=== PATIENT | female | born 1995 | race Hispanic/Latino ===

== ENCOUNTER 2017-05-23 21:18 | Inpatient (IN) | payer MEDICAID ==
[2017-05-23 21:32] VITALS: BMI 20.3
--- NOTE | 2017-05-23 21:37 | ED PDOC ---
Arrival/HPI - General Time Seen by Provider: 05/23/17 21:33 Historian: Patient - History of Present Illness Narrative History of Present Illness (Text): 05/23/17 21:34 A 21 year old female, whose past medical history includes endometriosis, presents to the emergency department complaining of intermittent rectal bleeding for 1 year. Patient reports today she noted blood mixed with discharge , which she describes as foul smelling pus. Patient notes upper abdominal pain and constipation. She states her last bowel movement was at least 24 hours ago. Patient denies any fever, chills, nausea, vomiting, chest pain, shortness of breath or any other complaints. Time/Duration: Other (1 year) Context: Home Past Medical History - Provider Review Nursing Documentation Reviewed: Yes Family/Social History - Physician Review Nursing Documentation Reviewed: Yes Family/Social History: No Known Family HX Allergies/Home Meds Allergies/Adverse Reactions: Allergies No Known Allergies Allergy (Verified 05/23/17 21:32) Home Medications: Home Meds Medication Instructions Recorded Confirmed No Known Home Med 05/23/17 05/23/17 Review of Systems - Physician Review All systems were reviewed & negative as marked: Yes - Review of Systems Constitutional: absent: Fevers, Night Sweats Respiratory: absent: SOB Cardiovascular: absent: Chest Pain Gastrointestinal: Abdominal Pain (upper abdomen), Constipation, Other (rectal bleeding with pus noted). absent: Nausea, Vomiting Physical Exam Vital Signs Temp Pulse Resp BP Pulse Ox 05/24/17 02:00 90 18 118/72 100 05/23/17 22:00 98.7 F 91 H 18 116/67 100 Appearance: Positive for: Well-Appearing, Non-Toxic, Comfortable Pain Distress: None Mental Status: Positive for: Alert and Oriented X 3 - Systems Exam Head: Present: Atraumatic, Normocephalic Pupils: Present: PERRL Extroacular Muscles: Present: EOMI Conjunctiva: Present: Normal Mouth: Present: Moist Mucous Membranes Respiratory/Chest: Present: Clear to Auscultation, Good Air Exchange. No: Respiratory Distress, Accessory Muscle Use Cardiovascular: Present: Regular Rate and Rhythm, Normal S1, S2. No: Murmurs Abdomen: No: Tenderness, Distention, Peritoneal Signs Rectal: Present: Normal Rectal Tone. No: Occult Blood, Rectal Tenderness, Gross Blood, Melena, Hemorrhoids, Fissures, Nodule/Mass/Lesions Upper Extremity: Present: Normal Inspection. No: Cyanosis, Edema Lower Extremity: Present: Normal Inspection. No: Edema Neurological: Present: GCS=15, CN II-XII Intact, Speech Normal Skin: Present: Warm, Dry, Normal Color. No: Rashes Psychiatric: Present: Alert, Oriented x 3, Normal Insight, Normal Concentration Medical Decision Making ED Course and Treatment: 05/23/17 21:33 Impression: A 21 year old female with rectal bloody discharge. Patient notes upper abdominal pain and constipation Plan: -- Abdomen and pelvis CT -- Labs -- Stool and Urine culture -- Urinalysis -- Reassess and disposition Progress Notes: - Lab Interpretations Lab Results: 05/23/17 21:55 05/23/17 21:55 Lab Results 05/23/17 21:55: Stool Leukocytes, Qual Positive H 05/23/17 21:55: Sodium 143, Potassium 3.6, Chloride 107, Carbon Dioxide 24, Anion Gap 16, BUN 13, Creatinine 0.7, Est GFR ( Amer) > 60, Est GFR (Non- Af Amer) > 60, Random Glucose 89, Calcium 10.1, Total Bilirubin 0.2, AST 25, ALT 28, Alkaline Phosphatase 66, Total Protein 8.4 H, Albumin 4.7, Globulin 3.7 , Albumin/Globulin Ratio 1.3 05/23/17 21:55: Urine Color Yellow, Urine Appearance Sl cloudy, Urine pH 6.0, Ur Specific [place] >= 1.030, Urine Protein Negative, Urine Glucose (UA) Negative, Urine Ketones Negative, Urine Blood Small H, Urine Nitrate Negative, Urine Bilirubin Negative, Urine Urobilinogen 0.2, Ur Leukocyte Esterase Small H , Urine RBC 1 - 3, Urine WBC 15 - 20, Ur Epithelial Cells 6 - 8, Urine Bacteria Mod 05/23/17 21:55: PT 11.3, INR 0.99 05/23/17 21:55: WBC 12.3 H, RBC 4.80, Hgb 12.9, Hct 39.4, MCV 82.1, MCH 26.9, MCHC 32.7, RDW 13.2, Plt Count 259, MPV 10.8, Gran % 64.0, Lymph % (Auto) 16.7 L , [place] % (Auto) 9.5 H, Eos % (Auto) 9.3 H, Baso % (Auto) 0.5, Gran # 7.90 H, Lymph # (Auto) 2.1, [place] # (Auto) 1.2 H, Eos # (Auto) 1.2 H, Baso # (Auto) 0.06 - RAD Interpretation Radiology Orders: 05/23/17 21:35 ABD PELVIS PO & IV CONTRAST [CT] Stat - Medication Orders Current Medication Orders: Acetaminophen (Tylenol 325mg Tab) 650 mg PO Q6H PRN PRN Reason: Fever >100.4 F Metronidazole (Flagyl) 500 mg in 100 mls @ 100 mls/hr IVPB Q8 KADI PRN Reason: Protocol Last Admin: 05/24/17 14:40 Dose: 100 mls/hr eMAR Start Stop Document 05/24/17 14:40 SOUSV (Rec: 05/24/17 14:40 S[facility]) Intravenous Solution Start Date 05/24/17 Start Time 14:40 End Date 05/24/17 End time 15:40 Total Infusion Time 60 Ceftriaxone Sodium (Rocephin 1 Gram Ivpb) 1 gm in 100 mls @ 100 mls/hr IVPB DAILY [facility] PRN Reason: Protocol Last Admin: 05/24/17 09:23 Dose: 100 mls/hr eMAR Start Stop Document 05/24/17 09:23 SOUSV (Rec: 05/24/17 09:23 [facility]SV [facility]) Intravenous Solution Start Date 05/24/17 Start Time 09:23 End Date 05/24/17 End time 10:23 Total Infusion Time 60 Sodium Chloride (Sodium Chloride 0.9%) 1,000 mls @ 150 mls/hr IV .[id number] [facility] Last Admin: 05/24/17 19:35 Dose: 150 mls/hr eMAR Start Stop Document 05/24/17 19:35 MAURO (Rec: 05/24/17 19:35 MAURO [facility]) Intravenous Solution Start Date 05/24/17 Start Time 19:35 Ketorolac Tromethamine (Toradol) 15 mg IVP Q6H PRN PRN Reason: Pain, moderate (4-7) Stop: 05/29/17 13:55 Ondansetron HCl (Zofran Inj) 4 mg IVP Q6H PRN PRN Reason: Nausea/Vomiting Pantoprazole Sodium (Protonix Inj) 40 mg IVP DAILY [facility] Last Admin: 05/24/17 09:21 Dose: 40 mg IVP Administration Document 05/24/17 09:21 SOU (Rec: 05/24/17 09:21 [facility] Charges for Administration # of IVP Administrations 1 Discontinued Medications Bisacodyl (Dulcolax) 10 mg PO ONCE ONE Stop: 05/24/17 20:01 Last Admin: 05/24/17 19:37 Dose: 10 mg Ceftriaxone Sodium (Rocephin 1 Gram Ivpb) 1 gm in 100 mls @ 100 mls/hr IVPB STAT STA PRN Reason: Protocol Stop: 05/23/17 23:31 Last Admin: 05/23/17 22:48 Dose: 100 mls/hr eMAR Start Stop Document 05/23/17 22:48 AD (Rec: 05/23/17 22:49 AD [id number]) Intravenous Solution Start Date 05/23/17 Start Time 22:49 Metronidazole (Flagyl) 500 mg in 100 mls @ 100 mls/hr IVPB STAT STA PRN Reason: Protocol Stop: 05/24/17 03:07 Last Admin: 05/24/17 02:36 Dose: 100 mls/hr eMAR Start Stop Document 05/24/17 02:36 AD (Rec: 05/24/17 02:37 AD [id number]) Intravenous Solution Start Date 05/24/17 Start Time 02:37 Sodium Chloride (Sodium Chloride 0.9%) 1,000 mls @ 92 mls/hr IV .[id number] [facility] Last Admin: 05/24/17 03:52 Dose: 92 mls/hr eMAR Start Stop Document 05/24/17 03:52 MAURO (Rec: 05/24/17 03:52 [facility] Intravenous Solution Start Date 05/24/17 Start Time 03:52 Magnesium Citrate (Citrate Of Mag) 300 ml PO ONCE ONE Stop: 05/24/17 16:01 Last Admin: 05/24/17 15:57 Dose: 300 ml Pneumococcal Polyvalent Vaccine (Pneumovax 23 Vaccine) 0.5 ml IM .ONCE ONE Stop: 05/24/17 04:32 - Scribe Statement The provider has reviewed the documentation as recorded by the Kelleyibmavis Travis Provider Scribe Attestation: All medical record entries made by the Kelleyibmavis were at my direction and personally dictated by me. I have reviewed the chart and agree that the record accurately reflects my personal performance of the history, physical exam, medical decision making, and the department course for this patient. I have also personally directed, reviewed, and agree with the discharge instructions and disposition. Disposition/Present on Arrival - Present on Arrival Any Indicators Present on Arrival: No History of DVT/PE: No History of Uncontrolled Diabetes: No Urinary Catheter: No History of Decub. Ulcer: No History Surgical Site Infection Following: None - Disposition Have Diagnosis and Disposition been Completed?: Yes Diagnosis: Colitis Disposition: HOSPITALIZED Disposition Time: 22:00 Patient Plan: Admission Patient Problems: Current Active Problems Problem Status Onset Colitis Acute Condition: STABLE
[2017-05-23 22:12] LABS: ALB/GLOB RATIO 1.3 (1.1-1.8); ALBUMIN 4.7 g/dL (3.0-4.8); ALT/SGPT 28 U/L (7-56); AST/SGOT 25 U/L (14-36); BLOOD UREA NITROGEN 13 mg/dL (7-21); CALCIUM 10.1 mg/dL (8.4-10.5); GFR AFRICAN-AMERICAN > 60; GFR NON-AFRICAN AMERICAN > 60
[2017-05-23 22:16] LABS: BASO # 0.06 K/mm3 (0.0-2.0); BASO % 0.5 % (0.0-3.0); EOS # 1.2 (0.0-0.7); EOS % 9.3 % (1.5-5.0); GRAN # 7.9 (1.4-6.5); HEMOGLOBIN 12.9 g/dL (12.0-16.0); LYMPH # 2.1 (1.2-3.4); LYMPH % 16.7 % (22.0-35.0); MEAN CELL VOLUME 82.1 fl (80.0-105.0); MEAN CORPUSCULAR HEMOGLOBIN 26.9 pg (25.0-35.0); MEAN CORPUSCULAR HGB CONC 32.7 g/dl (31.0-37.0); MEAN PLATELET VOLUME 10.8 fl (7.0-11.0); MONO # 1.2 (0.1-0.6); MONO % 9.5 % (1.0-6.0); RBC 4.8 10^6/uL (3.5-6.1); RED CELL DISTRIBUTION WIDTH 13.2 % (11.5-14.5); URINE BILIRUBIN NEGATIVE (NEGATIVE); URINE BLOOD SMALL (NEGATIVE); URINE GLUCOSE (UA) NEGATIVE (NEGATIVE); URINE LEUKOCYTE ESTERASE SMALL Leu/uL (NEGATIVE); URINE PROTEIN NEGATIVE mg/dL (<30 mg/dL); URINE UROBILINOGEN 0.2 E.U./dL (<1 E.U./dL); WHITE BLOOD COUNT 12.3 10^3/ul (4.5-11.0)
[2017-05-23] MEDS ORDERED: Iohexol 350 MG/100 ML VIAL ONE (22:16)
[2017-05-23] MEDS ORDERED: Iohexol 240 (50 ml) ONE (22:16)
[2017-05-23 22:18] LABS: URINE APPEARANCE SL CLOUDY (CLEAR); URINE COLOR YELLOW (YELLOW)
[2017-05-23 22:31] LABS: URINE BACTERIA MOD (NEG); URINE WBC 15 - 20 /hpf (0-6)
[2017-05-23 22:32] LABS: INR 0.99 (0.93-1.08); PROTHROMBIN TIME 11.3 SECONDS (9.4-12.5)
[2017-05-23] MEDS ORDERED: cefTRIAXone 1 gm 1 GM/100 ML BAG IVPB STA (22:32)
[2017-05-24] MEDS ORDERED: metroNIDAZOLE IV 500 mg/100 ml 500 MG/100 ML BAG IVPB STA (02:08)
--- NOTE | 2017-05-24 02:09 | ED PDOC ---
Physical Exam Vital Signs Temp Pulse Resp BP Pulse Ox 05/24/17 02:00 90 18 118/72 100 05/23/17 22:00 98.7 F 91 H 18 116/67 100 Medical Decision Making ED Course and Treatment: 05/23/17 23:00 Case endorsed to me by Dr. Acevedo, pending labs, CT, re-assessment, and disposition. 05/24/17 02:09 CT Abdomen and Pelvis shows: Lung bases: Unremarkable. No mass. No consolidation. ABDOMEN: Liver: The liver is unremarkable. Gallbladder and bile ducts: The gallbladder is unremarkable. No biliary ductal dilatation. Pancreas: The pancreas is unremarkable. Spleen: The spleen is unremarkable. Adrenals: The adrenal glands are unremarkable. Kidneys and ureters: Symmetric renal enhancement without hydronephrosis. Stomach and bowel: The colon is moderately distended with stool. Circumferential wall thickening the sigmoid colon and rectum with mild mucosal enhancement, compatible with a distal infectious or inflammatory colitis. No significant small bowel dilatation. Appendix: No findings to suggest acute appendicitis. PELVIS: Bladder: No focal wall thickening of the urinary bladder. Reproductive: 2.4 cm left corpus luteum cyst. ABDOMEN and PELVIS: Intraperitoneal space: No significant peritoneal free fluid. No free peritoneal air. Bones/joints: No acute osseous abnormality. Soft tissues: No soft tissue swelling. Vasculature: Unremarkable. No abdominal aortic aneurysm. Lymph nodes: No adenopathy. IMPRESSION: The colon is moderately distended with stool. Circumferential wall thickening of the sigmoid colon and rectum with mild mucosal enhancement, compatible with a distal infectious or inflammatory colitis. 05/24/17 02:19 Case discussed with medical intern apron operator, who is aware and agrees with plan. 05/24/17 02:[address] Figueroa, who is aware and agrees with plan. Accepts pt in hospitalist service. Pt will go to [facility] observation for colitis, r/o IBD. pt will multiple episodes in er of janet pus/bloody discharge per rectum. will obs for gi eval in am 05/24/17 03:11 - Lab Interpretations Lab Results: 05/23/17 21:55 05/23/17 21:55 Lab Results 05/23/17 21:55: Sodium 143, Potassium 3.6, Chloride 107, Carbon Dioxide 24, Anion Gap 16, BUN 13, Creatinine 0.7, Est GFR ( Amer) > 60, Est GFR (Non- Af Amer) > 60, Random Glucose 89, Calcium 10.1, Total Bilirubin 0.2, AST 25, ALT 28, Alkaline Phosphatase 66, Total Protein 8.4 H, Albumin 4.7, Globulin 3.7 , Albumin/Globulin Ratio 1.3 05/23/17 21:55: Urine Color Yellow, Urine Appearance Sl cloudy, Urine pH 6.0, Ur Specific [place] >= 1.030, Urine Protein Negative, Urine Glucose (UA) Negative, Urine Ketones Negative, Urine Blood Small H, Urine Nitrate Negative, Urine Bilirubin Negative, Urine Urobilinogen 0.2, Ur Leukocyte Esterase Small H , Urine RBC 1 - 3, Urine WBC 15 - 20, Ur Epithelial Cells 6 - 8, Urine Bacteria Mod 05/23/17 21:55: PT 11.3, INR 0.99 05/23/17 21:55: WBC 12.3 H, RBC 4.80, Hgb 12.9, Hct 39.4, MCV 82.1, MCH 26.9, MCHC 32.7, RDW 13.2, Plt Count 259, MPV 10.8, Gran % 64.0, Lymph % (Auto) 16.7 L , [place] % (Auto) 9.5 H, Eos % (Auto) 9.3 H, Baso % (Auto) 0.5, Gran # 7.90 H, Lymph # (Auto) 2.1, [place] # (Auto) 1.2 H, Eos # (Auto) 1.2 H, Baso # (Auto) 0.06 I have reviewed the lab results: Yes - RAD Interpretation Radiology Orders: 05/23/17 21:35 ABD PELVIS PO & IV CONTRAST [CT] Stat Mammography Technician: Radiologist - Medication Orders Current Medication Orders: Metronidazole (Flagyl) 500 mg in 100 mls @ 100 mls/hr IVPB STAT STA PRN Reason: Protocol Stop: 05/24/17 03:07 Discontinued Medications Ceftriaxone Sodium (Rocephin 1 Gram Ivpb) 1 gm in 100 mls @ 100 mls/hr IVPB STAT STA PRN Reason: Protocol Stop: 05/23/17 23:31 Last Admin: 05/23/17 22:48 Dose: 100 mls/hr eMAR Start Stop Document 05/23/17 22:48 AD (Rec: 05/23/17 22:49 AD [id number]) Intravenous Solution Start Date 05/23/17 Start Time 22:49 Disposition/Present on Arrival - Present on Arrival Any Indicators Present on Arrival: No History of DVT/PE: No History of Uncontrolled Diabetes: No Urinary Catheter: No History of Decub. Ulcer: No History Surgical Site Infection Following: None - Disposition Have Diagnosis and Disposition been Completed?: Yes Diagnosis: Colitis Disposition: HOSPITALIZED Disposition Time: 01:00 Condition: STABLE
[2017-05-24] MEDS ORDERED: Sodium Chloride 0.9% 1,000 ML IV SCH (03:15)
--- NOTE | 2017-05-24 03:31 | CP.PCM.HP ---
<Nadir Lim - Last Filed: 05/24/17 03:16> History of Present Illness - History of Present Illness History of Present Illness: CC: Blood and mucus per rectum Pt is a 21 yo F with PMH of endometriosis presents to [facility] due to blood and mucus per rectum. Pt states that over the last month she has had intermittent bright red blood per rectum often with a jelly-like consistency. Pt has associated sharp rectal pain with bowel movements and mid-abdominal pain. Over the last day, patient complains of increasing loose stools with BRBPR, mucus, and foul smell. Pt experiences increased urgency to have a BM. Pt denies any recent sick contacts, travel, or antibiotic use. Pt denies CP, SOB, n/v, fever, chills, dysuria, hematuria, CHA, or dizziness. LDMP was 3 months ago as she was taking OCP (stopped ~1 month ago). Patient is sexually active with only boyfriend, last time was 1 month ago. PMD: Steven PMH: Endometriosis Surg: B/L ovarian cystectomy All: NKDA SH: Denied tobacco, EtOH, and illicit drug use FHx: Breast CA, prostate CA, DM, HTN Medications: none Present on Admission - Present on Admission Any Indicators Present on Admission: No Review of Systems - Review of Systems Review of Systems: 12 point ROS reviewed and is negative other than what is stated in HPI. Past Patient History - Past Social History Smoking Status: Never Smoked - CARDIAC Hx Cardiac Disorders: No - PULMONARY Hx Respiratory Disorders: No - NEUROLOGICAL Hx Neurological Disorder: No - HEENT Hx HEENT Problems: No - RENAL Hx Chronic Kidney Disease: No - HEMATOLOGICAL/ONCOLOGICAL Hx Blood Disorders: No - INTEGUMENTARY Hx Dermatological Problems: No - MUSCULOSKELETAL/RHEUMATOLOGICAL Hx Musculoskeletal Disorders: No - GASTROINTESTINAL Hx Gastrointestinal Disorders: No - GENITOURINARY/GYNECOLOGICAL Other/Comment: hx endometriosis - PSYCHIATRIC Hx Psychophysiologic Disorder: No Hx Substance Use: No - SURGICAL HISTORY Other/Comment: b/l cystectomy - ANESTHESIA Hx Anesthesia: No Hx Anesthesia Reactions: No Hx Malignant Hyperthermia: No Meds Allergies/Adverse Reactions: Allergies Allergy/AdvReac Type Severity Reaction Status Date / Time No Known Allergies Allergy Verified 05/23/17 21:32 Physical Exam - Constitutional Appears: No Acute Distress - Head Exam Head Exam: NORMAL INSPECTION - Eye Exam Eye Exam: Normal appearance - ENT Exam ENT Exam: Mucous Membranes Moist Additional comments: no ulcers noted - Neck Exam Neck exam: Positive for: Normal Inspection - Respiratory Exam Respiratory Exam: Clear to Auscultation Bilateral. absent: Rales, Rhonchi, Wheezes - Cardiovascular Exam Cardiovascular Exam: RRR, +S1, +S2. absent: Diastolic murmur, Gallop, Rubs, Systolic Murmur - GI/Abdominal Exam GI & Abdominal Exam: Soft, Tenderness (lower abdomen, greatest in LLQ). absent : Distended, Guarding, Rebound - Rectal Exam Additional comments: blood, mucus discharge per rectum - Extremities Exam Extremities exam: Positive for: normal inspection - Back Exam Back exam: NORMAL INSPECTION - Neurological Exam Neurological exam: Alert, CN II-XII Intact, Oriented x3 - Psychiatric Exam Psychiatric exam: Normal Affect, Normal Mood - Skin Skin Exam: Dry, Intact, Normal Color, Warm Results - Vital Signs Recent Vital Signs: Last Vital Signs Temp 98.7 F 05/23/17 22:00 Pulse 90 05/24/17 02:00 Resp 18 05/24/17 02:00 BP 118/72 05/24/17 02:00 Pulse Ox 100 05/24/17 02:00 - Labs Result Diagrams: 05/23/17 21:55 05/23/17 21:55 Labs: Laboratory Results - last 24 hr 05/23/17 05/23/17 05/23/17 21:55 21:55 21:55 WBC 12.3 H RBC 4.80 Hgb 12.9 Hct 39.4 MCV 82.1 MCH 26.9 MCHC 32.7 RDW 13.2 Plt Count 259 MPV 10.8 Gran % 64.0 Lymph % (Auto) 16.7 L [place] % (Auto) 9.5 H Eos % (Auto) 9.3 H Baso % (Auto) 0.5 Gran # 7.90 H Lymph # (Auto) 2.1 [place] # (Auto) 1.2 H Eos # (Auto) 1.2 H Baso # (Auto) 0.06 PT 11.3 INR 0.99 Sodium Potassium Chloride Carbon Dioxide Anion Gap BUN Creatinine Est GFR ( Amer) Est GFR (Non-Af Amer) Random Glucose Calcium Total Bilirubin AST ALT Alkaline Phosphatase Total Protein Albumin Globulin Albumin/Globulin Ratio Urine Color Yellow Urine Appearance Sl cloudy Urine pH 6.0 Ur Specific [place] >= 1.030 Urine Protein Negative Urine Glucose (UA) Negative Urine Ketones Negative Urine Blood Small H Urine Nitrate Negative Urine Bilirubin Negative Urine Urobilinogen 0.2 Ur Leukocyte Esterase Small H Urine RBC 1 - 3 Urine WBC 15 - 20 Ur Epithelial Cells 6 - 8 Urine Bacteria Mod 05/23/17 21:55 WBC RBC Hgb Hct MCV MCH MCHC RDW Plt Count MPV Gran % Lymph % (Auto) [place] % (Auto) Eos % (Auto) Baso % (Auto) Gran # Lymph # (Auto) [place] # (Auto) Eos # (Auto) Baso # (Auto) PT INR Sodium 143 Potassium 3.6 Chloride 107 Carbon Dioxide 24 Anion Gap 16 BUN 13 Creatinine 0.7 Est GFR ( Amer) > 60 Est GFR (Non-Af Amer) > 60 Random Glucose 89 Calcium 10.1 Total Bilirubin 0.2 AST 25 ALT 28 Alkaline Phosphatase 66 Total Protein 8.4 H Albumin 4.7 Globulin 3.7 Albumin/Globulin Ratio 1.3 Urine Color Urine Appearance Urine pH Ur Specific [place] Urine Protein Urine Glucose (UA) Urine Ketones Urine Blood Urine Nitrate Urine Bilirubin Urine Urobilinogen Ur Leukocyte Esterase Urine RBC Urine WBC Ur Epithelial Cells Urine Bacteria Assessment & Plan - Assessment and Plan (Free Text) Assessment: 21 yo F with PMH of endometriosis admitted for bloody, purulent discharge per rectum and findings on CT consistent with colitis. Plan: 1. Colitis - Inflammatory vs. Infectious - CT abd/pelvis: the colon is moderately distended with stool. Circumferential wall thickening of the sigmoid colon and rectum with mild mucosal enhancement, compatible with a distal infectious or inflammatory colitis. - WBC 12.9, no shift - ESR, CRP ordered - F/u stool culture and fecal leukocytes - F/u Chlamydia/GC - NPO - NS at 92 cc/hr - Cont Flagyl and Ceftriaxone - Morphine for pain - Zofran for nausea - GI consulted, pt's mother requests Clemencia GI/DVT PPx - Protonix - SCDs - Avoid AC at this time due to bleed risk Pt seen and discussed in detail with Dr. Figueroa. Patel Lim, PGY1 <Alexx Figueroa - Last Filed: 05/24/17 07:13> Results - Vital Signs Recent Vital Signs: Last Vital Signs Temp 98.7 F 05/24/17 04:21 Pulse 82 05/24/17 04:21 Resp 16 05/24/17 04:21 BP 108/78 05/24/17 04:21 Pulse Ox 100 05/24/17 02:00 - Labs Result Diagrams: 05/23/17 21:55 05/23/17 21:55 Labs: Laboratory Results - last 24 hr 05/24/17 04:05 ESR 13 Attending/Attestation - Attestation I have personally seen and examined this patient.: Yes I have fully participated in the care of the patient.: Yes I have reviewed all pertinent clinical information: Yes Notes (Text): 05/24/17 07:12 Patient was seen when she was in 360-01. Agree with history , physical examination, assessment and plan.
[2017-05-24] MEDS ORDERED: Morphine 2 mg/2 mL syringe IVP PRN (03:38)
[2017-05-24] MEDS ORDERED: Pneumococcal 23-Valent Vaccine IM ONE (04:31)
[2017-05-24] MEDS: metroNIDAZOLE IV 500 mg/100 ml 500 MG/100 ML BAG IVPB SCH ×3 (05:52→21:37)
--- NOTE | 2017-05-24 09:09 | CT ---
PROCEDURE: CT Abdomen and Pelvis with contrast HISTORY: Gen Abdominal Pain // Bloody Mucus per Rectum COMPARISON: None. TECHNIQUE: Contrast dose: 100 mL Omnipaque 350 Radiation dose: Total exam DLP = 257 mGy-cm. This CT exam was performed using one or more of the following dose reduction techniques: Automated exposure control, adjustment of the mA and/or kV according to patient size, and/or use of iterative reconstruction technique. FINDINGS: LOWER THORAX: Unremarkable. LIVER: Unremarkable. No gross lesion or ductal dilatation. GALLBLADDER AND BILE DUCTS: Unremarkable. PANCREAS: Unremarkable. No gross lesion or ductal dilatation. SPLEEN: Unremarkable. ADRENALS: Unremarkable. No mass. KIDNEYS AND URETERS: Unremarkable. No hydronephrosis. No solid mass. VASCULATURE: Unremarkable. No aortic aneurysm. BOWEL: Extensive stool retention. . No obstruction. There is minimal mucosal enhancement of the rectum and rectosigmoid colon. APPENDIX: Appendix is not identified with certainty. No pericecal inflammatory changes noted PERITONEUM: Unremarkable. No free fluid. No free air. LYMPH NODES: Unremarkable. No enlarged lymph nodes. BLADDER: Unremarkable. REPRODUCTIVE: Bilateral ovarian relative hypodensity compatible with bilateral ovarian follicles - likely a dominant left ovarian follicle 1.6 cm probably involuting occurred shape incidentally noted. BONES: No acute fracture. OTHER FINDINGS: None. IMPRESSION: The colon is mostly distended with extensive stool. No mechanical obstruction. At the rectum and rectosigmoid levels the colonic caliber is less distended. There is minimal mucosal enhancement at this a rectal/rectosigmoid colonic segment. This can be seen with inflammatory and/or infectious mild colitis. Clinical follow-up recommended Concordant results (preliminary interpretation) provided by [facility].
[2017-05-24] MEDS: cefTRIAXone 1 gm 1 GM/100 ML BAG IVPB SCH (09:23)
[2017-05-24 09:49] LABS: HEMOGLOBIN 11.7 g/dL (12.0-16.0); MEAN CELL VOLUME 80.7 fl (80.0-105.0); MEAN CORPUSCULAR HEMOGLOBIN 27.1 pg (25.0-35.0); MEAN CORPUSCULAR HGB CONC 33.6 g/dl (31.0-37.0); MEAN PLATELET VOLUME 10.8 fl (7.0-11.0); RBC 4.31 10^6/uL (3.5-6.1); RED CELL DISTRIBUTION WIDTH 13.2 % (11.5-14.5); WHITE BLOOD COUNT 9.9 10^3/ul (4.5-11.0)
[2017-05-24 10:17] LABS: BLOOD UREA NITROGEN 7 mg/dL (7-21); GFR AFRICAN-AMERICAN > 60; GFR NON-AFRICAN AMERICAN > 60
--- NOTE | 2017-05-24 15:27 | CP.PCM.CON ---
<Dagmar Swartz - Last Filed: 05/24/17 15:26> History of Present Illness - History of Present Illness History of Present Illness: Seen and examined at the bedside earlier today, chart review. Request for GI consult is for colitis and rectal bleeding. HPI: This is a 21-year-old female with a past medical history of endometriosis came to the emergency room with complaints of mucoid bloody discharge per rectum. Patient reports that 2 days before she was having soft bowel movements then yesterday started having mucoid bloody bowel movements with foul odor. Denies episodes of diarrhea. She also complains of rectal discomfort with bowel movements and mid abdominal pain. Does report nausea but no vomiting. Denies recent travel, sick contacts, she did however gets UTI and was treated with amoxicillin over a month ago. No episodes of diarrhea. The patient however does report intermittent bleeding over a year, at least 6-10 episodes. Patient denies any anorexia or weight loss. No complaints of any dyspepsia. Patient is sexually active and denies anal sex. Patient has had endoscopy and colonoscopy over 2 years ago in [place] with a Dr. Juarez, patient recalls no acute findings, endorse that this was done in relation to her endometriosis. on admission she had CT scan of abdomen and pelvis with by mouth and IV contrast and this reported stool in the colon, no obstruction there is minimal mucosal enhancement of the rectum and rectosigmoid colon this can be seen with inflammatory and/or infectious mild colitis. Past medical history: Endometriosis, UTI Surgical history: Bilateral ovarian cystectomy, EGD/colonoscopy 2 years ago no acute findings Allergies: No known drug allergies Social history: Denies tobacco use, EtOH or illicit drugs Family history prostate cancer, breast cancer, diabetes mellitus, hypertension Medications reviewed as per MAR ROS: Systems reviewed and positive findings the HPI Past Patient History - Past Social History Smoking Status: Never Smoked - CARDIAC Hx Cardiac Disorders: No - PULMONARY Hx Respiratory Disorders: No - NEUROLOGICAL Hx Neurological Disorder: No - HEENT Hx HEENT Problems: No - RENAL Hx Chronic Kidney Disease: No - HEMATOLOGICAL/ONCOLOGICAL Hx Blood Disorders: No - INTEGUMENTARY Hx Dermatological Problems: No - MUSCULOSKELETAL/RHEUMATOLOGICAL Hx Falls: No - GASTROINTESTINAL Hx Gastrointestinal Disorders: No - GENITOURINARY/GYNECOLOGICAL Other/Comment: hx endometriosis - PSYCHIATRIC Hx Psychophysiologic Disorder: No Hx Substance Use: No - SURGICAL HISTORY Other/Comment: b/l cystectomy - ANESTHESIA Hx Anesthesia: No Hx Anesthesia Reactions: No Hx Malignant Hyperthermia: No Meds Allergies/Adverse Reactions: Allergies Allergy/AdvReac Type Severity Reaction Status Date / Time No Known Allergies Allergy Verified 05/23/17 21:32 - Medications Medications: Current Medications Acetaminophen (Tylenol 325mg Tab) 650 mg PO Q6H PRN PRN Reason: Fever >100.4 F Bisacodyl (Dulcolax) 10 mg PO ONCE ONE Stop: 05/24/17 20:01 Metronidazole (Flagyl) 500 mg in 100 mls @ 100 mls/hr IVPB Q8 [facility] PRN Reason: Protocol Last Admin: 05/24/17 14:40 Dose: 100 mls/hr Ceftriaxone Sodium (Rocephin 1 Gram Ivpb) 1 gm in 100 mls @ 100 mls/hr IVPB DAILY [facility] PRN Reason: Protocol Last Admin: 05/24/17 09:23 Dose: 100 mls/hr Sodium Chloride (Sodium Chloride 0.9%) 1,000 mls @ 150 mls/hr IV .Q6H40M [facility] Ketorolac Tromethamine (Toradol) 15 mg IVP Q6H PRN PRN Reason: Pain, moderate (4-7) Stop: 05/29/17 13:55 Magnesium Citrate (Citrate Of Mag) 300 ml PO ONCE ONE Stop: 05/24/17 16:01 Ondansetron HCl (Zofran Inj) 4 mg IVP Q6H PRN PRN Reason: Nausea/Vomiting Pantoprazole Sodium (Protonix Inj) 40 mg IVP DAILY [facility] Last Admin: 05/24/17 09:21 Dose: 40 mg Physical Exam - Constitutional Appears: No Acute Distress - Head Exam Head Exam: NORMAL INSPECTION - Eye Exam Eye Exam: Normal appearance. absent: Scleral icterus - ENT Exam ENT Exam: Mucous Membranes Moist - Neck Exam Neck exam: Positive for: Normal Inspection - Respiratory Exam Respiratory Exam: Clear to Auscultation Bilateral, NORMAL BREATHING PATTERN. absent: Respiratory Distress - Cardiovascular Exam Cardiovascular Exam: +S1, +S2 - GI/Abdominal Exam GI & Abdominal Exam: Normal Bowel Sounds, Soft. absent: Guarding, Rebound - Extremities Exam Extremities exam: Positive for: pedal pulses present. Negative for: calf tenderness, pedal edema - Neurological Exam Neurological exam: Alert, Oriented x3 - Skin Skin Exam: Dry, Warm Results - Vital Signs Recent Vital Signs: Last Vital Signs Temp 98.5 F 05/24/17 08:21 Pulse 81 05/24/17 08:21 Resp 19 05/24/17 08:21 BP 110/75 05/24/17 08:21 Pulse Ox 98 05/24/17 08:21 - Labs Result Diagrams: 05/24/17 09:45 05/24/17 09:45 Labs: Laboratory Results - last 24 hr 05/24/17 05/24/17 05/24/17 04:05 04:05 09:45 WBC 9.9 RBC 4.31 Hgb 11.7 L Hct 34.8 L MCV 80.7 MCH 27.1 MCHC 33.6 RDW 13.2 Plt Count 215 MPV 10.8 ESR 13 Sodium Potassium Chloride Carbon Dioxide Anion Gap BUN Creatinine Est GFR ( Amer) Est GFR (Non-Af Amer) Random Glucose Calcium C-Reactive Protein 8.20 05/24/17 09:45 WBC RBC Hgb Hct MCV MCH MCHC RDW Plt Count MPV ESR Sodium 140 Potassium 3.7 Chloride 107 Carbon Dioxide 23 Anion Gap 13 BUN 7 Creatinine 0.6 L Est GFR ( Amer) > 60 Est GFR (Non-Af Amer) > 60 Random Glucose 82 Calcium 9.0 C-Reactive Protein Assessment & Plan - Assessment and Plan (Free Text) Assessment: Assessment: Rectal bleeding, status post CT scan showing rectosigmoid colitis, inflammatory versus infectious;differentials to consider is C. difficile colitis, inflammatory bowel disease. History of endometriosis History of UTI, status post amoxicillin Plan: Will plan for flex sigmoidoscopy on 05/25/2017 Patient will be given bowel prep of magnesium citrate at 4 PM and Dulcolax tablets at 8 PM, see orders Start Clear Liquid Diet On IV Antibiotics: Ceftriaxone and Flagyl Stool studies: Culture, C. difficile, fecal leukocytes pending Monitor H&H and GI bleeding, H&H currently stable Continue GI prophylaxis Discussed with patient and/mother and medical team. Thank you for this consult and for allowing us to participate in your patient's care, further recommendations based upon clinical course. Seen and discussed with Dr. Khanna <Kaitlin Khanna V - Last Filed: 05/25/17 23:59> Meds - Medications Medications: Current Medications Acetaminophen (Tylenol 325mg Tab) 650 mg PO Q6H PRN PRN Reason: Fever >100.4 F Last Admin: 05/24/17 22:58 Dose: 650 mg Metronidazole (Flagyl) 500 mg in 100 mls @ 100 mls/hr IVPB Q8 [facility] PRN Reason: Protocol Last Admin: 05/25/17 21:38 Dose: 100 mls/hr Sodium Chloride (Sodium Chloride 0.9%) 1,000 mls @ 150 mls/hr IV .Q6H40M [facility] Last Admin: 05/25/17 03:55 Dose: 150 mls/hr Ketorolac Tromethamine (Toradol) 15 mg IVP Q6H PRN PRN Reason: Pain, moderate (4-7) Stop: 05/29/17 13:55 Ondansetron HCl (Zofran Inj) 4 mg IVP Q6H PRN PRN Reason: Nausea/Vomiting Last Admin: 05/25/17 14:24 Dose: 4 mg Pantoprazole Sodium (Protonix Inj) 40 mg IVP DAILY [facility] Last Admin: 05/25/17 10:24 Dose: 40 mg Results - Vital Signs Recent Vital Signs: Last Vital Signs Temp 98.7 F 05/25/17 16:00 Pulse 71 05/25/17 16:00 Resp 20 05/25/17 16:00 BP 91/60 L 05/25/17 16:00 Pulse Ox 98 05/25/17 16:00 - Labs Result Diagrams: 05/25/17 05:30 05/25/17 05:30 Labs: Laboratory Results - last 24 hr 05/25/17 05/25/17 15:54 16:55 Blood Type A POSITIVE Blood Type Confirm A POSITIVE Antibody Screen Negative BBK History Checked No verified bt Attending/Attestation - Attestation I have personally seen and examined this patient.: Yes I have fully participated in the care of the patient.: Yes I have reviewed all pertinent clinical information: Yes Notes (Text): This is an addendum to GI consult report dictated by Dagmar Swartz APN.The patient was seen and examined earlier. Medical records, lab studies, imagings were reviewed. Last 24 hours events reviewed. Agreed with the above treatment plan as outlined in Dagmar Swartz APN's notes with the addition of the following 05/25/17 23:59
[2017-05-24] MEDS ORDERED: Magnesium Citrate Oral SOL (300 ml) PO ONE (16:00)
[2017-05-24] MEDS: Sodium Chloride 0.9% 1,000 ML IV SCH (19:35)
[2017-05-24] MEDS ORDERED: Bisacodyl 5mg EC Tab PO ONE (20:00)
[2017-05-25] MEDS: Sodium Chloride 0.9% 1,000 ML IV SCH (03:55)
[2017-05-25] MEDS: metroNIDAZOLE IV 500 mg/100 ml 500 MG/100 ML BAG IVPB SCH ×3 (05:20→21:38)
[2017-05-25 06:21] LABS: BASO # 0.04 K/mm3 (0.0-2.0); BASO % 0.6 % (0.0-3.0); EOS # 0.8 (0.0-0.7); EOS % 11.1 % (1.5-5.0); GRAN # 3.79 (1.4-6.5); GRAN % 55.2 % (50.0-68.0); HEMOGLOBIN 11.5 g/dL (12.0-16.0); LYMPH # 1.6 (1.2-3.4); LYMPH % 23.6 % (22.0-35.0); MEAN CELL VOLUME 81.8 fl (80.0-105.0); MEAN CORPUSCULAR HEMOGLOBIN 26.8 pg (25.0-35.0); MEAN CORPUSCULAR HGB CONC 32.8 g/dl (31.0-37.0); MEAN PLATELET VOLUME 10.9 fl (7.0-11.0); MONO # 0.7 (0.1-0.6); MONO % 9.5 % (1.0-6.0); RBC 4.29 10^6/uL (3.5-6.1); RED CELL DISTRIBUTION WIDTH 13.5 % (11.5-14.5); WHITE BLOOD COUNT 6.9 10^3/ul (4.5-11.0)
[2017-05-25 07:18] LABS: BLOOD UREA NITROGEN 8 mg/dL (7-21); CALCIUM 8.9 mg/dL (8.4-10.5); GFR AFRICAN-AMERICAN > 60; GFR NON-AFRICAN AMERICAN > 60
[2017-05-25] MEDS ORDERED: Lidocaine 2% Jelly (30 ml) ONE (07:49)
[2017-05-25] MEDS: cefTRIAXone 1 gm 1 GM/100 ML BAG IVPB SCH (10:24)
--- NOTE | 2017-05-25 12:27 | CP.PCM.PN ---
<Mario Quijano - Last Filed: 05/25/17 12:54> Subjective - Date & Time of Evaluation Date of Evaluation: 05/25/17 Time of Evaluation: 12:25 - Subjective Subjective: Medicine Progress Note: Patient was seen and assessed at bedside. No acute events overnight noted by patient or nursing staff. Patient reports that she has had nausea since yesterday but notes that this is resolving with PO intake. She denies any further complaints including fever, chills, headache, chest pain, SOB, cough, abdominal pain, V/D/C, urinary changes, skin changes, or any numbness/tingling/ weakness of any extremity. Objective - Vital Signs/Intake and Output Vital Signs (last 24 hours): Temp Pulse Resp BP Pulse Ox 98.4 F 101 H 19 104/58 L 99 05/25/17 07:50 05/25/17 08:30 05/25/17 08:30 05/25/17 08:30 05/25/17 08:30 Intake and Output: 05/25/17 05/25/17 06:59 18:59 Intake Total 2460 50 Balance 2460 50 - Medications Medications: Current Medications Acetaminophen (Tylenol 325mg Tab) 650 mg PO Q6H PRN PRN Reason: Fever >100.4 F Last Admin: 05/24/17 22:58 Dose: 650 mg Metronidazole (Flagyl) 500 mg in 100 mls @ 100 mls/hr IVPB Q8 [facility] PRN Reason: Protocol Last Admin: 05/25/17 05:20 Dose: 100 mls/hr Ceftriaxone Sodium (Rocephin 1 Gram Ivpb) 1 gm in 100 mls @ 100 mls/hr IVPB DAILY [facility] PRN Reason: Protocol Last Admin: 05/25/17 10:24 Dose: 100 mls/hr Sodium Chloride (Sodium Chloride 0.9%) 1,000 mls @ 150 mls/hr IV .Q6H40M [facility] Last Admin: 05/25/17 03:55 Dose: 150 mls/hr Ketorolac Tromethamine (Toradol) 15 mg IVP Q6H PRN PRN Reason: Pain, moderate (4-7) Stop: 05/29/17 13:55 Ondansetron HCl (Zofran Inj) 4 mg IVP Q6H PRN PRN Reason: Nausea/Vomiting Pantoprazole Sodium (Protonix Inj) 40 mg IVP DAILY [facility] Last Admin: 05/25/17 10:24 Dose: 40 mg - Labs Labs: 05/25/17 05:30 05/25/17 05:30 PT 11.3 SECONDS (9.4-12.5) 05/23/17 21:55 INR 0.99 (0.93-1.08) 05/23/17 21:55 - Constitutional Appears: Non-toxic, No Acute Distress - Head Exam Head Exam: ATRAUMATIC, NORMOCEPHALIC - Eye Exam Eye Exam: EOMI, Normal appearance Pupil Exam: NORMAL ACCOMODATION, PERRL - ENT Exam ENT Exam: Mucous Membranes Moist, Normal Exam - Neck Exam Neck Exam: Full ROM, Normal Inspection. absent: Lymphadenopathy, Thyromegaly - Respiratory Exam Respiratory Exam: Clear to Ausculation Bilateral, NORMAL BREATHING PATTERN. absent: Accessory Muscle Use, Chest Wall Tenderness, Decreased Breath Sounds, Prolonged Expiratory Phase, Rales, Rhonchi, Wheezes, Respiratory Distress, Stridor - Cardiovascular Exam Cardiovascular Exam: REGULAR RHYTHM, RRR, +S1, +S2. absent: Bradycardia, Tachycardia, Clicks, Diastolic murmur, Gallop, Irregular Rhythm, JVD, Rubs, +S4 , Murmur - GI/Abdominal Exam GI & Abdominal Exam: Soft, Normal Bowel Sounds. absent: Distended, Firm, Guarding, Rigid, Tenderness, Rebound - Extremities Exam Extremities Exam: Full ROM, Normal Capillary Refill, Normal Inspection. absent : Calf Tenderness, Joint Swelling, Pedal Edema, Tenderness - Back Exam Back Exam: NORMAL INSPECTION - Neurological Exam Neurological Exam: Alert, Awake, CN II-XII Intact, Normal Gait, Oriented x3 - Psychiatric Exam Psychiatric exam: Normal Affect, Normal Mood - Skin Skin Exam: Dry, Intact, Normal Color, Warm Assessment and Plan - Assessment and Plan (Free Text) Assessment: 21 year old female with a past medical history significant for endometriosis who was admitted for bloody and purulent discharge per rectum intermittently over the past year with an acute worsening over the 24 hours [employer]. A CT Abdomen/ Pelvis showed moderate colonic distention with stool noted, circumferential wall thickening of the sigmoid colon and rectum with mild mucosal enhancement that is compatible with a distal infectious or inflammatory colitis. Patient was started on IV Rocephin and Flagyl. GI was consulted and took patient for flexible sigmoidoscopy on 05/24/2017 with a patchy area of mildly erythematous mucosa located in the rectum and sigmoid colon as well as external and internal hemorrhoids with biopsies and IBD panel pending. Patient is currently on and tolerating a soft low fiber diet. Patient has been hemodynamically stable throughout admission. Plan: 1. Rectosigmoid Colitis -Secondary to either distal infectious or inflammatory etiology -Flexible Sigmoidoscopy showed a patchy area of mildly erythematous mucosa located in the rectum and sigmoid colon as well as external and internal hemorrhoids with biopsies pending -CT Abdomen/Pelvis showed moderate colonic distention with stool noted, circumferential wall thickening of the sigmoid colon and rectum with mild mucosal enhancement that is compatible with a distal infectious or inflammatory colitis -Fecal Leukocytes positive -Stool cultures, C. Diff serology and IBD panel pending -Afebrile and without leukocytosis, tachycardia or tachypnea -Continue IV Flagyl and Rocephin (Day 2) -Continue Normal Saline at 150mls/hr -Continue Toradol 15mg IVP Q6H PRN for pain control, Tylenol 650mg PO Q6H PRN for fever, and Zofran 4mg IVP Q6H PRN for N/V -Soft Low Fiber Diet with advancement as tolerated -GI consulted, all recommendations appreciated GI Prophylaxis: Protonix DVT Prophylaxis: SCD's Patient seen and case discussed with attending, Dr. Lundberg. <Brock Lundberg - Last Filed: 05/25/17 17:33> Objective - Vital Signs/Intake and Output Vital Signs (last 24 hours): Temp Pulse Resp BP Pulse Ox 98.7 F 71 20 91/60 L 98 05/25/17 16:00 05/25/17 16:00 05/25/17 16:00 05/25/17 16:00 05/25/17 16:00 - Medications Medications: Current Medications Acetaminophen (Tylenol 325mg Tab) 650 mg PO Q6H PRN PRN Reason: Fever >100.4 F Last Admin: 05/24/17 22:58 Dose: 650 mg Metronidazole (Flagyl) 500 mg in 100 mls @ 100 mls/hr IVPB Q8 [facility] PRN Reason: Protocol Last Admin: 05/25/17 14:19 Dose: 100 mls/hr Ceftriaxone Sodium (Rocephin 1 Gram Ivpb) 1 gm in 100 mls @ 100 mls/hr IVPB DAILY [facility] PRN Reason: Protocol Last Admin: 05/25/17 10:24 Dose: 100 mls/hr Sodium Chloride (Sodium Chloride 0.9%) 1,000 mls @ 150 mls/hr IV .Q6H40M [facility] Last Admin: 05/25/17 03:55 Dose: 150 mls/hr Ketorolac Tromethamine (Toradol) 15 mg IVP Q6H PRN PRN Reason: Pain, moderate (4-7) Stop: 05/29/17 13:55 Ondansetron HCl (Zofran Inj) 4 mg IVP Q6H PRN PRN Reason: Nausea/Vomiting Last Admin: 05/25/17 14:24 Dose: 4 mg Pantoprazole Sodium (Protonix Inj) 40 mg IVP DAILY [facility] Last Admin: 05/25/17 10:24 Dose: 40 mg - Labs Labs: PT 11.3 SECONDS (9.4-12.5) 05/23/17 21:55 INR 0.99 (0.93-1.08) 05/23/17 21:55 Attending/Attestation - Attestation I have personally seen and examined this patient.: Yes I have fully participated in the care of the patient.: Yes I have reviewed all pertinent clinical information, including history, physical exam and plan: Yes Notes (Text): 05/25/17 17:30 Attending note; Patient seen and examined with resident. Patient is a 21-year-old female with past medical history of endometriosis, ovarian surgery is admitted with bleeding per rectum. Patient had symptoms on and off for the past 1 year. Patient recently noticed blood and mucus mixed with stool for the past [address] consistent with colitis. Infectious versus inflammatory colitis suspected. Status post flex sigmoidoscopy and biopsy. Continue IV Rocephin and Flagyl. Started on diet. Monitor closely. Patient needs colonoscopy as outpatient. Patient had colonoscopy 2 years ago normal. Monitor patient with IV anti-biotics. Upon discharge the patient will follow-up with PMD of choice. Patient needs close follow-up with GI.
[2017-05-26] MEDS: metroNIDAZOLE IV 500 mg/100 ml 500 MG/100 ML BAG IVPB SCH ×2 (06:15→14:41)
[2017-05-26 07:34] LABS: BASO # 0.04 K/mm3 (0.0-2.0); BASO % 0.5 % (0.0-3.0); EOS # 0.8 (0.0-0.7); EOS % 10.1 % (1.5-5.0); GRAN # 4.05 (1.4-6.5); GRAN % 53.3 % (50.0-68.0); HEMOGLOBIN 11.8 g/dL (12.0-16.0); LYMPH # 2.1 (1.2-3.4); LYMPH % 27.8 % (22.0-35.0); MEAN CELL VOLUME 81.4 fl (80.0-105.0); MEAN CORPUSCULAR HEMOGLOBIN 27.1 pg (25.0-35.0); MEAN CORPUSCULAR HGB CONC 33.3 g/dl (31.0-37.0); MEAN PLATELET VOLUME 10.8 fl (7.0-11.0); MONO # 0.6 (0.1-0.6); MONO % 8.3 % (1.0-6.0); RBC 4.35 10^6/uL (3.5-6.1); RED CELL DISTRIBUTION WIDTH 13.2 % (11.5-14.5); WHITE BLOOD COUNT 7.6 10^3/ul (4.5-11.0)
[2017-05-26 07:45] LABS: BLOOD UREA NITROGEN 8 mg/dL (7-21); CALCIUM 9.4 mg/dL (8.4-10.5); GFR AFRICAN-AMERICAN > 60; GFR NON-AFRICAN AMERICAN > 60
[2017-05-26] MEDS: Sodium Chloride 0.9% 1,000 ML IV SCH (08:06)
[2017-05-26 17:05] VITALS: BP 106/65; PULSE 71; RESP 20; TEMP 99; O2SAT 99
--- NOTE | 2017-05-27 17:24 | CP.PCM.DIS ---
<Mario Quijano - Last Filed: 05/27/17 17:16> Provider - Provider Date of Admission: 05/25/17 13:49 Attending physician: Brock Lundberg MD Primary care physician: NO PRIMARY CARE PROVIDER Consults: GI: Clemencia Time Spent in preparation of Discharge (in minutes): 41 Diagnosis - Discharge Diagnosis (1) Colitis Status: Acute Hospital Course - Lab Results Lab Results: Most Recent Lab Values WBC 7.6 10^3/ul (4.5-11.0) 05/26/17 07:00 RBC 4.35 10^6/uL (3.5-6.1) 05/26/17 07:00 Hgb 11.8 g/dL (12.0-16.0) L 05/26/17 07:00 Hct 35.4 % (36.0-48.0) L 05/26/17 07:00 MCV 81.4 fl (80.0-105.0) 05/26/17 07:00 MCH 27.1 pg (25.0-35.0) 05/26/17 07:00 MCHC 33.3 g/dl (31.0-37.0) 05/26/17 07:00 RDW 13.2 % (11.5-14.5) 05/26/17 07:00 Plt Count 233 10^3/uL (120.0-450.0) 05/26/17 07:00 MPV 10.8 fl (7.0-11.0) 05/26/17 07:00 Gran % 53.3 % (50.0-68.0) 05/26/17 07:00 Lymph % (Auto) 27.8 % (22.0-35.0) 05/26/17 07:00 [place] % (Auto) 8.3 % (1.0-6.0) H 05/26/17 07:00 Eos % (Auto) 10.1 % (1.5-5.0) H 05/26/17 07:00 Baso % (Auto) 0.5 % (0.0-3.0) 05/26/17 07:00 Gran # 4.05 (1.4-6.5) 05/26/17 07:00 Lymph # (Auto) 2.1 (1.2-3.4) 05/26/17 07:00 [place] # (Auto) 0.6 (0.1-0.6) 05/26/17 07:00 Eos # (Auto) 0.8 (0.0-0.7) H 05/26/17 07:00 Baso # (Auto) 0.04 K/mm3 (0.0-2.0) 05/26/17 07:00 ESR 13 mm/hr (0.0-20.0) 05/24/17 04:05 PT 11.3 SECONDS (9.4-12.5) 05/23/17 21:55 INR 0.99 (0.93-1.08) 05/23/17 21:55 Sodium 139 mmol/L (132-148) 05/26/17 07:00 Potassium 3.6 mmol/L (3.6-5.0) 05/26/17 07:00 Chloride 106 mmol/L (98-107) 05/26/17 07:00 Carbon Dioxide 25 mmol/L (21-33) 05/26/17 07:00 Anion Gap 12 (10-20) 05/26/17 07:00 BUN 8 mg/dL (7-21) 05/26/17 07:00 Creatinine 0.6 mg/dl (0.7-1.2) L 05/26/17 07:00 Est GFR ( Amer) > 60 05/26/17 07:00 Est GFR (Non-Af Amer) > 60 05/26/17 07:00 Random Glucose 77 mg/dL (70-110) 05/26/17 07:00 Calcium 9.4 mg/dL (8.4-10.5) 05/26/17 07:00 Total Bilirubin 0.2 mg/dL (0.2-1.3) 05/23/17 21:55 AST 25 U/L (14-36) 05/23/17 21:55 ALT 28 U/L (7-56) 05/23/17 21:55 Alkaline Phosphatase 66 U/L (38-126) 05/23/17 21:55 Total Creatine Kinase 35 U/L (35-230) 05/26/17 07:00 C-Reactive Protein 8.20 mg/L (0.0-9.9) 05/24/17 04:05 Total Protein 8.4 g/dL (5.8-8.3) H 05/23/17 21:55 Albumin 4.7 g/dL (3.0-4.8) 05/23/17 21:55 Globulin 3.7 gm/dL 05/23/17 21:55 Albumin/Globulin Ratio 1.3 (1.1-1.8) 05/23/17 21:55 Urine Color Yellow (YELLOW) 05/23/17 21:55 Urine Appearance Sl cloudy (CLEAR) 05/23/17 21:55 Urine pH 6.0 (4.7-8.0) 05/23/17 21:55 Ur Specific [place] >= 1.030 (1.005-1.035) 05/23/17 21:55 Urine Protein Negative mg/dL (<30 mg/dL) 05/23/17 21:55 Urine Glucose (UA) Negative mg/dL (NEGATIVE) 05/23/17 21:55 Urine Ketones Negative mg/dL (NEGATIVE) 05/23/17 21:55 Urine Blood Small (NEGATIVE) H 05/23/17 21:55 Urine Nitrate Negative (NEGATIVE) 05/23/17 21:55 Urine Bilirubin Negative (NEGATIVE) 05/23/17 21:55 Urine Urobilinogen 0.2 E.U./dL (<1 E.U./dL) 05/23/17 21:55 Ur Leukocyte Esterase Small Hetal/uL (NEGATIVE) H 05/23/17 21:55 Urine RBC 1 - 3 /hpf (0-2) 05/23/17 21:55 Urine WBC 15 - 20 /hpf (0-6) 05/23/17 21:55 Ur Epithelial Cells 6 - 8 /hpf (0-5) 05/23/17 21:55 Urine Bacteria Mod (NEG) 05/23/17 21:55 Stool Leukocytes, Qual Positive (NEGATIVE) H 05/23/17 21:55 C.trachomatis RNA (TMA) Not detected (Not Detected) 05/23/17 22:01 N.gonorrhoeae RNA (TMA) Not detected (Not Detected) 05/23/17 22:01 Blood Type A POSITIVE 05/25/17 15:54 Blood Type Confirm A POSITIVE 05/25/17 16:55 Antibody Screen Negative 05/25/17 15:54 BBK History Checked No verified bt 05/25/17 15:54 - Hospital Course Hospital Course: 21 year old female with a past medical history significant for endometriosis who was admitted for bloody and purulent discharge per rectum intermittently over the past year with an acute worsening over the 24 hours [employer]. A CT Abdomen/ Pelvis showed moderate colonic distention with stool noted, circumferential wall thickening of the sigmoid colon and rectum with mild mucosal enhancement that is compatible with a distal infectious or inflammatory colitis. Patient was started on IV Rocephin and Flagyl. GI was consulted and took patient for flexible sigmoidoscopy on 05/24/2017 with a patchy area of mildly erythematous mucosa located in the rectum and sigmoid colon as well as external and internal hemorrhoids with biopsies and IBD panel pending. Patient is currently on and tolerating a soft low fiber diet. Patient was started on toradol for pain control, tylenol for fever, and zofran for N/V. Patient was discharged on with the prescriptions and discharge instructions as written below. - Date & Time of H&P Date of H&P: 05/24/17 Time of H&P: 17:18 Discharge Exam - Head Exam Head Exam: ATRAUMATIC, NORMOCEPHALIC - Eye Exam Eye Exam: EOMI, Normal appearance Pupil Exam: NORMAL ACCOMODATION, PERRL - Respiratory Exam Respiratory Exam: Clear to PA & Lateral, NORMAL BREATHING PATTERN, UNREMARKABLE - Cardiovascular Exam Cardiovascular Exam: REGULAR RHYTHM - GI/Abdominal Exam GI & Abdominal Exam: Normal Bowel Sounds, Soft, Unremarkable. absent: Distended , Firm, Guarding, Rebound, Rigid - Extremities Exam Extremities exam: full ROM, normal capillary refill, normal inspection, pedal pulses present - Back Exam Back exam: FULL ROM, NORMAL INSPECTION - Neurological Exam Neurological exam: Alert, CN II-XII Intact, Normal Gait, Oriented x3, Reflexes Normal - Psychiatric Exam Psychiatric exam: Normal Affect, Normal Mood - Skin Skin Exam: Dry, Intact, Normal Color, Warm Discharge Plan - Discharge Medications Prescriptions: Ciprofloxacin [Cipro] 500 mg PO BID #20 tab Metronidazole [Flagyl] 500 mg PO Q8 #30 tablet Ondansetron ODT [Zofran ODT] 4 mg PO Q6 #10 odt - Follow Up Plan Condition: STABLE Disposition: HOME/ ROUTINE Instructions: Low Fiber Diet, Microscopic Colitis Additional Instructions: Please follow up with your PMD (Dr. Harris) within one to two weeks. Please follow up biopsy results with Dr. Khanna within one week. You might need an outpatient colonoscopy. Please discuss this with Dr. Khanna as well. Please take all medications as prescribed. If your symptoms worsen or persist, please seek emergency medical attention. Referrals: PCP,NO [Primary Care Provider] - Kaitlin Khanna MD [Medical Doctor] - <Brock Lundberg - Last Filed: 05/27/17 17:33> Provider - Provider Date of Admission: 05/25/17 13:49 Attending physician: Brock Lundberg MD Primary care physician: ALLYN PRIMARY CARE PROVIDER Hospital Course - Lab Results Lab Results: Most Recent Lab Values WBC 7.6 10^3/ul (4.5-11.0) 05/26/17 07:00 RBC 4.35 10^6/uL (3.5-6.1) 05/26/17 07:00 Hgb 11.8 g/dL (12.0-16.0) L 05/26/17 07:00 Hct 35.4 % (36.0-48.0) L 05/26/17 07:00 MCV 81.4 fl (80.0-105.0) 05/26/17 07:00 MCH 27.1 pg (25.0-35.0) 05/26/17 07:00 MCHC 33.3 g/dl (31.0-37.0) 05/26/17 07:00 RDW 13.2 % (11.5-14.5) 05/26/17 07:00 Plt Count 233 10^3/uL (120.0-450.0) 05/26/17 07:00 MPV 10.8 fl (7.0-11.0) 05/26/17 07:00 Gran % 53.3 % (50.0-68.0) 05/26/17 07:00 Lymph % (Auto) 27.8 % (22.0-35.0) 05/26/17 07:00 [place] % (Auto) 8.3 % (1.0-6.0) H 05/26/17 07:00 Eos % (Auto) 10.1 % (1.5-5.0) H 05/26/17 07:00 Baso % (Auto) 0.5 % (0.0-3.0) 05/26/17 07:00 Gran # 4.05 (1.4-6.5) 05/26/17 07:00 Lymph # (Auto) 2.1 (1.2-3.4) 05/26/17 07:00 [place] # (Auto) 0.6 (0.1-0.6) 05/26/17 07:00 Eos # (Auto) 0.8 (0.0-0.7) H 05/26/17 07:00 Baso # (Auto) 0.04 K/mm3 (0.0-2.0) 05/26/17 07:00 ESR 13 mm/hr (0.0-20.0) 05/24/17 04:05 PT 11.3 SECONDS (9.4-12.5) 05/23/17 21:55 INR 0.99 (0.93-1.08) 05/23/17 21:55 Sodium 139 mmol/L (132-148) 05/26/17 07:00 Potassium 3.6 mmol/L (3.6-5.0) 05/26/17 07:00 Chloride 106 mmol/L (98-107) 05/26/17 07:00 Carbon Dioxide 25 mmol/L (21-33) 05/26/17 07:00 Anion Gap 12 (10-20) 05/26/17 07:00 BUN 8 mg/dL (7-21) 05/26/17 07:00 Creatinine 0.6 mg/dl (0.7-1.2) L 05/26/17 07:00 Est GFR ( Amer) > 60 05/26/17 07:00 Est GFR (Non-Af Amer) > 60 05/26/17 07:00 Random Glucose 77 mg/dL (70-110) 05/26/17 07:00 Calcium 9.4 mg/dL (8.4-10.5) 05/26/17 07:00 Total Bilirubin 0.2 mg/dL (0.2-1.3) 05/23/17 21:55 AST 25 U/L (14-36) 05/23/17 21:55 ALT 28 U/L (7-56) 05/23/17 21:55 Alkaline Phosphatase 66 U/L (38-126) 05/23/17 21:55 Total Creatine Kinase 35 U/L (35-230) 05/26/17 07:00 C-Reactive Protein 8.20 mg/L (0.0-9.9) 05/24/17 04:05 Total Protein 8.4 g/dL (5.8-8.3) H 05/23/17 21:55 Albumin 4.7 g/dL (3.0-4.8) 05/23/17 21:55 Globulin 3.7 gm/dL 05/23/17 21:55 Albumin/Globulin Ratio 1.3 (1.1-1.8) 05/23/17 21:55 Urine Color Yellow (YELLOW) 05/23/17 21:55 Urine Appearance Sl cloudy (CLEAR) 05/23/17 21:55 Urine pH 6.0 (4.7-8.0) 05/23/17 21:55 Ur Specific [place] >= 1.030 (1.005-1.035) 05/23/17 21:55 Urine Protein Negative mg/dL (<30 mg/dL) 05/23/17 21:55 Urine Glucose (UA) Negative mg/dL (NEGATIVE) 05/23/17 21:55 Urine Ketones Negative mg/dL (NEGATIVE) 05/23/17 21:55 Urine Blood Small (NEGATIVE) H 05/23/17 21:55 Urine Nitrate Negative (NEGATIVE) 05/23/17 21:55 Urine Bilirubin Negative (NEGATIVE) 05/23/17 21:55 Urine Urobilinogen 0.2 E.U./dL (<1 E.U./dL) 05/23/17 21:55 Ur Leukocyte Esterase Small Hetal/uL (NEGATIVE) H 05/23/17 21:55 Urine RBC 1 - 3 /hpf (0-2) 05/23/17 21:55 Urine WBC 15 - 20 /hpf (0-6) 05/23/17 21:55 Ur Epithelial Cells 6 - 8 /hpf (0-5) 05/23/17 21:55 Urine Bacteria Mod (NEG) 05/23/17 21:55 Stool Leukocytes, Qual Positive (NEGATIVE) H 05/23/17 21:55 C.trachomatis RNA (TMA) Not detected (Not Detected) 05/23/17 22:01 N.gonorrhoeae RNA (TMA) Not detected (Not Detected) 05/23/17 22:01 Blood Type A POSITIVE 05/25/17 15:54 Blood Type Confirm A POSITIVE 05/25/17 16:55 Antibody Screen Negative 05/25/17 15:54 BBK History Checked No verified bt 05/25/17 15:54 Attending/Attestation - Attestation I have personally seen and examined this patient.: Yes I have fully participated in the care of the patient.: Yes I have reviewed all pertinent clinical information, including history, physical exam and plan: Yes Notes (Text): 05/27/17 17:32 Attending note; Patient seen and examined with resident. Patient is a 21-year-old female with past medical history of endometriosis, ovarian surgery is admitted with bleeding per rectum. Patient had symptoms on and off for the past 1 year. Patient recently noticed blood and mucus mixed with stool for the past [address] consistent with colitis. Infectious versus inflammatory colitis suspected. Status post flex sigmoidoscopy and biopsy. Currently no abdominal pain. Tolerating diet well. Patient needs colonoscopy as outpatient. Patient had colonoscopy 2 years ago normal. Patient will be discharged home today. Follow up biopsy results. Upon discharge the patient will follow-up with PMD in [place]. Patient needs close follow-up with GI.
== END 2017-05-26 17:39 | disposition home or self-care (01) | DRG 814 ==
LOC: ED 21:18 → 3RNO 05-24 02:23 → ERH 05-24 02:23 → UNDOADMOB 05-24 02:23 → ERH 05-24 02:58 → 3RNO 05-24 03:25 → ERH 05-24 03:25 → OBSVTOIN 05-25 13:49 → 3RNO 05-25 19:48
PROVIDERS: ADMIT Internal Medicine; ATTEND Internal Medicine
PROC: 0DBN8ZX Excision of Sigmoid Colon, Via Natural or Artificial Opening Endoscopic, Diagnostic (ICD-10-PCS; principal; 2017-05-25 15:45)
DX: K52.9 Noninfective gastroenteritis and colitis, unspecified (principal); K59.00 Constipation, unspecified; K64.8 Other hemorrhoids; K64.4 Residual hemorrhoidal skin tags; Z87.440 Personal history of urinary (tract) infections; Z80.3 Family history of malignant neoplasm of breast; Z80.42 Family history of malignant neoplasm of prostate; Z83.3 Family history of diabetes mellitus; Z82.49 Family history of ischemic heart disease and other diseases of the circulatory system